=== PATIENT | male | born 1960 | race Caucasian/White ===

== ENCOUNTER 2017-06-02 15:37 | Inpatient (IN) | payer MEDICAID, OTHER, SELFPAY ==
[~2017-06-02] VITALS: Ht 182.9 cm; Wt 91.0 kg
[2017-06-02] MEDS ORDERED: ASPIRIN 81 MG TABLET CHEW PO ONE (16:00)
[2017-06-02] MEDS ORDERED: ASPIRIN 81 MG TABLET CHEW ONE (16:30)
[2017-06-02 16:41] LABS: HEMATOCRIT 44.1 % (39.2-51.8); HEMOGLOBIN 14.8 g/dL (13.7-18.0); WHITE BLOOD COUNT 12.5 x10^3/uL (3.4-10)
[2017-06-02] MEDS ORDERED: METF500T4 PO (16:45)
[2017-06-02 16:49] LABS: BLOOD UREA NITROGEN 23 mg/dL (7-18)
[2017-06-02 16:53] LABS: IS PT STATUS REG ER OR PRE ER? YES
[2017-06-02 17:45] LABS: PATH.CAST-FLAG NOT PRESENT; SPERM-FLAG NOT PRESENT; SRC-FLAG NOT PRESENT; XTAL-FLAG NOT PRESENT; YLC-FLAG NOT PRESENT
[2017-06-02] MEDS ORDERED: LISI40TA PO (17:50)
[2017-06-02] MEDS ORDERED: ASPI-515 PO (17:50)
[2017-06-02] MEDS ORDERED: AMLO10TA2 PO (17:50)
[2017-06-02] MEDS ORDERED: CHLO25TA PO (17:50)
[2017-06-02] MEDS ORDERED: GLIP5TAB10 PO (17:50)
[2017-06-02] MEDS ORDERED: INSU100V13 SQ (17:50)
[2017-06-02] MEDS ORDERED: HYDROmorphone 2 MG/ML, 1ML IVPush PRN (18:30)
[2017-06-02] MEDS ORDERED: NITROGLYCERIN 0.4 MG BOTTLE (25 TABS) SL PRN (18:30)
[2017-06-02] MEDS ORDERED: ASPIRIN 81 MG TABLET EC PO PRN (18:30)
[2017-06-02] MEDS ORDERED: hydrALAzine 20 MG/ML, 1ML IVPush PRN (18:30)
[2017-06-02] MEDS ORDERED: ACETAMINOPHEN 325 MG TABLET PO PRN (18:30)
[2017-06-02] MEDS ORDERED: ONDANSETRON 2MG/ML, 2ML IVPush PRN (18:30)
[2017-06-02 19:55] LABS: IS PT STATUS REG ER OR PRE ER? NO
[2017-06-02 20:13] VITALS: BP 134/81
[2017-06-02] MEDS: FAMOTIDINE 20 MG/2 ML IVPush SCH (21:38)
[2017-06-02] MEDS: ENOXAPARIN 40 MG/0.4 ML SQ SCH (21:38)
[2017-06-02] MEDS: FUROSEMIDE 20 MG/2 ML IVPush SCH (21:38)
[2017-06-02] MEDS: SODIUM CHLORIDE FLUSH 10ML SYR IVF SCH (21:39)
[2017-06-02] MEDS: INSULIN ASPART 100 UNITS/ML, PEN SQ-INSULIN SCH (21:52)
[2017-06-03 00:40] VITALS: BP 129/63
[2017-06-03 01:18] LABS: IS PT STATUS REG ER OR PRE ER? NO
[2017-06-03 06:54] VITALS: BP 136/76
[2017-06-03 06:56] LABS: HEMATOCRIT 42.7 % (39.2-51.8); HEMOGLOBIN 14.5 g/dL (13.7-18.0); WHITE BLOOD COUNT 8.9 x10^3/uL (3.4-10)
[2017-06-03 07:04] LABS: BLOOD UREA NITROGEN 26 mg/dL (7-18)
[2017-06-03 07:11] LABS: IS PT STATUS REG ER OR PRE ER? NO
[2017-06-03] MEDS: FAMOTIDINE 20 MG/2 ML IVPush SCH ×2 (08:28→20:39)
[2017-06-03] MEDS: ASPIRIN 325 MG TABLET EC PO SCH (08:29)
[2017-06-03] MEDS: INSULIN ASPART 100 UNITS/ML, PEN SQ-INSULIN SCH ×4 (08:29→20:39)
[2017-06-03] MEDS: FUROSEMIDE 20 MG/2 ML IVPush SCH ×2 (08:29→20:39)
[2017-06-03] MEDS: SPIRONOLACTONE 25 MG TABLET PO SCH (08:30)
[2017-06-03] MEDS: CHLORTHALIDONE 25 MG TABLET PO SCH (08:30)
[2017-06-03] MEDS: LISINOPRIL 20 MG TABLET PO SCH (08:30)
[2017-06-03] MEDS: SODIUM CHLORIDE FLUSH 10ML SYR IVF SCH ×2 (08:30→20:38)
[2017-06-03 13:16] VITALS: BP 147/82
[2017-06-03 19:28] VITALS: BP 130/73
[2017-06-03] MEDS: ENOXAPARIN 40 MG/0.4 ML SQ SCH (20:39)
[2017-06-04 02:31] VITALS: BP 127/76
[2017-06-04 05:54] LABS: HEMATOCRIT 47.2 % (39.2-51.8); HEMOGLOBIN 16.1 g/dL (13.7-18.0); WHITE BLOOD COUNT 14.8 x10^3/uL (3.4-10)
[2017-06-04 06:14] LABS: BLOOD UREA NITROGEN 32 mg/dL (7-18)
[2017-06-04] MEDS: ASPIRIN 325 MG TABLET EC PO SCH (06:27)
[2017-06-04 06:50] VITALS: BP 120/73
[2017-06-04] MEDS ORDERED: HEPARIN 5,000 UNITS/ML, 1ML SQ SCH (08:00)
[2017-06-04] MEDS: FUROSEMIDE 20 MG/2 ML IVPush SCH (08:58)
[2017-06-04] MEDS: SODIUM CHLORIDE FLUSH 10ML SYR IVF SCH (08:58)
[2017-06-04] MEDS: INSULIN ASPART 100 UNITS/ML, PEN SQ-INSULIN SCH ×2 (08:58→12:42)
[2017-06-04] MEDS: SPIRONOLACTONE 25 MG TABLET PO SCH (08:59)
[2017-06-04] MEDS: LISINOPRIL 20 MG TABLET PO SCH (08:59)
[2017-06-04] MEDS: FAMOTIDINE 20 MG/2 ML IVPush SCH (08:59)
[2017-06-04] MEDS: CHLORTHALIDONE 25 MG TABLET PO SCH (12:42)
[2017-06-05] MEDS ORDERED: FUROSEMIDE 40 MG TABLET PO SCH (09:00)
== END 2017-06-04 14:40 | disposition left against medical advice (07) | DRG 682 ==
LOC: ED 16:36 → EDIP 17:39 → 5SO 19:47
PROVIDERS: ADMIT Internal Medicine; ATTEND Internal Medicine
DX: N17.9 Acute kidney failure, unspecified (principal); I21.4 Non-ST elevation (NSTEMI) myocardial infarction; E11.41 Type 2 diabetes mellitus with diabetic mononeuropathy; I50.9 Heart failure, unspecified; E11.65 Type 2 diabetes mellitus with hyperglycemia; D72.829 Elevated white blood cell count, unspecified; I27.81 Cor pulmonale (chronic); I11.0 Hypertensive heart disease with heart failure; E78.5 Hyperlipidemia, unspecified; F17.200 Nicotine dependence, unspecified, uncomplicated; I07.1 Rheumatic tricuspid insufficiency; I34.0 Nonrheumatic mitral (valve) insufficiency; I35.8 Other nonrheumatic aortic valve disorders; Z79.82 Long term (current) use of aspirin; Z82.49 Family history of ischemic heart disease and other diseases of the circulatory system; Z83.3 Family history of diabetes mellitus
CPT/HCPCS: 36415; 71020; 80048; 81001; 82040; 82962; 83036; 83735; 83880; 84443; 84484; 85025; 93005; 93306; 99285; J1650; J1815; J1940; S0028

== ENCOUNTER → 2017-11-22 | Outpatient (CLI) | payer MEDICAID ==
[~2017-11-22] MED LIST: AMLO10TA2 PO; ASPI-515 PO; CHLO25TA PO; GLIP5TAB10 PO; INSU100V13 SQ; LISI40TA PO; METF500T4 PO
== END | disposition home or self-care (01) ==
LOC: CVU 07:29 → EDSTATUS 08:00
PROVIDERS: ATTEND Internal Medicine Cardiovascular Disease
DX: I34.0 Nonrheumatic mitral (valve) insufficiency (principal); I10 Essential (primary) hypertension; E11.9 Type 2 diabetes mellitus without complications; Q21.1 Atrial septal defect; Z87.891 Personal history of nicotine dependence
CPT/HCPCS: 93306

== ENCOUNTER 2019-08-12 23:28 | Emergency (ER) | payer BC, MEDICAID ==
[~2019-08-12] VITALS: Ht 182.9 cm; Wt 96.0 kg
[~2019-08-12 23:28] MED LIST changes: -AMLO10TA2 PO; +AMLO10TA8 PO; +METF500T17 PO; -METF500T4 PO
[2019-08-13] MEDS ORDERED: SODIUM CHLORIDE FLUSH 10ML SYR IVF ONE
[2019-08-13] MEDS ORDERED: ONDANSETRON 2MG/ML, 2ML IVPush ONE
[2019-08-13] MEDS ORDERED: MORPHINE SULFATE 4 MG/ML, 1ML IVPush PRN
[2019-08-13] MEDS ORDERED: ONDANSETRON 2MG/ML, 2ML ONE (00:08)
[2019-08-13] MEDS ORDERED: MORPHINE SULFATE 4 MG/ML, 1ML ONE (00:09)
[2019-08-13 00:23] LABS: ALANINE AMINOTRANSFERASE 13 U/L (12-78); ALBUMIN 2.1 g/dL (3.4-5.0); ANION GAP 8 mmol/L (5-15); CHLORIDE 106 mmol/L (98-107); CREATININE 1.92 mg/dL (0.7-1.3)
[2019-08-13 00:24] LABS: BASOPHILS # (AUTO) 0.06 x10^3/uL (0-0.1); BASOPHILS % (AUTO) 0 % (0-1); EOSINOPHILS # (AUTO) 0.09 x10^3/uL (0-0.4); EOSINOPHILS % (AUTO) 1 % (1-7); LYMPHOCYTES # (AUTO) 1.78 x10^3/uL (1-3.4); LYMPHOCYTES % (AUTO) 10 % (22-44); MD NO; MEAN CORPUSCULAR HEMOGLOBIN 31.6 pg (27.5-34.5); MEAN CORPUSCULAR HGB CONC 34.3 g/dL (33.2-36.2); MEAN CORPUSCULAR VOLUME 92.1 fL (81-97); MEAN PLATELET VOLUME 7.8 fL (7.4-10.4); MONOCYTES # (AUTO) 1.08 x10^3/uL (0.2-0.8); MONOCYTES % (AUTO) 6 % (2-9); NEUTROPHILS # (AUTO) 14.67 x10^3/uL (1.8-6.8); NEUTROPHILS % (AUTO) 83 % (42-75); PLATELET COUNT 293 x10^3/uL (130-400); RED BLOOD COUNT 4.71 x10^6/uL (4.38-5.82); RED CELL DISTRIBUTION WIDTH 13.1 % (9.4-14.8)
[2019-08-13 00:26] LABS: ALKALINE PHOSPHATASE 133 U/L (45-117); BILIRUBIN,TOTAL 0.3 mg/dL (0.2-1.0); TOTAL PROTEIN 6.4 g/dL (6.4-8.2)
[2019-08-13] MEDS ORDERED: CEFAZOLIN PMX 1GM/50ML 50 ML ONE (00:55)
[2019-08-13] MEDS ORDERED: VANCOMYCIN PER PHARMACY MC ONE (01:00)
[2019-08-13] MEDS ORDERED: SODIUM CHLORIDE 0.9% 1,000ML IVBOLUS ONE (01:00)
[2019-08-13] MEDS ORDERED: CEFAZOLIN PMX 1GM/50ML 50 ML IV ONE (01:00)
[2019-08-13 01:21] VITALS: BP 150/94
[2019-08-13] MEDS ORDERED: VANCOMYCIN 1,900 MG in SODIUM CHLORIDE 0.9% 250 ML IV ONE (01:30)
--- NOTE | 2019-08-13 01:30 | NUR ---
x2 SETS OF BLOOD CULTURES DRAWN PRIOR TO ABX ADMIN.
--- NOTE | 2019-08-13 01:33 | NUR ---
PT RESTING ON GURNEY WITH EYES CLOSED, MEDICATED PER SEP. DENIES FURTHER NEEDS AT THIS TIME.
--- NOTE | 2019-08-13 01:50 | NUR ---
DR UGALDE TALKED WITH PT RE ADMITTING PT TO HOSPITAL, PT STATED THAT HE WOULD NOT LIKE TO BE ADMITTED, AND WANTED TO BE DISCHARGED AT THIS TIME PT IN NAD AT THIS TIME
--- NOTE | 2019-08-13 02:25 | NUR ---
PT REFUSED VANCOMYCIN, MED RETURNED TO PHARMACY.
== END 2019-08-13 02:58 | disposition home or self-care (01) ==
LOC: ED 08-13 01:14
DX: L03.221 Cellulitis of neck (principal); E11.65 Type 2 diabetes mellitus with hyperglycemia; I50.9 Heart failure, unspecified; I25.2 Old myocardial infarction; F17.200 Nicotine dependence, unspecified, uncomplicated
CPT/HCPCS: 36415; 70490; 80053; 83605; 84145; 85025; 87040; 93005; 96365; 96375; 99284; J0690; J2270; J2405; J7030

== ENCOUNTER 2019-08-14 23:52 | Inpatient (IN) | payer BC ==
[~2019-08-14] VITALS: Ht 182.9 cm; Wt 97.5 kg
[2019-08-15] MEDS ORDERED: HYDROmorphone 1 MG/ML, 1ML INJ ONE (00:14)
[2019-08-15] MEDS ORDERED: LIDOCAINE-MPF 2% ,5ML ONE (00:14)
[2019-08-15] MEDS ORDERED: ONDANSETRON 2MG/ML, 2ML ONE (00:14)
[2019-08-15] MEDS ORDERED: CLINDAMYCIN PMX 600MG/50ML 50 ML ONE (00:14)
[2019-08-15] MEDS ORDERED: SODIUM CHLORIDE 0.9% 1,000ML IVBOLUS ONE (00:30)
[2019-08-15] MEDS ORDERED: LIDOCAINE 2%, 20ML SQ ONE (00:30)
[2019-08-15] MEDS ORDERED: CLINDAMYCIN PMX 600MG/50ML 50 ML IVPB ONE (00:30)
[2019-08-15] MEDS ORDERED: ONDANSETRON 2MG/ML, 2ML IVPush ONE (00:30)
[2019-08-15] MEDS ORDERED: SODIUM CHLORIDE FLUSH 10ML SYR IVF ONE (00:30)
[2019-08-15] MEDS ORDERED: HYDROmorphone 1 MG/ML, 1ML INJ IVPush PRN (00:30)
[2019-08-15 01:15] LABS: BASOPHILS # (AUTO) 0.04 x10^3/uL (0-0.1); BASOPHILS % (AUTO) 0 % (0-1); EOSINOPHILS # (AUTO) 0.23 x10^3/uL (0-0.4); EOSINOPHILS % (AUTO) 2 % (1-7); LYMPHOCYTES # (AUTO) 1.51 x10^3/uL (1-3.4); LYMPHOCYTES % (AUTO) 10 % (22-44); MD NO; MEAN CORPUSCULAR HEMOGLOBIN 31.7 pg (27.5-34.5); MEAN CORPUSCULAR HGB CONC 34.7 g/dL (33.2-36.2); MEAN CORPUSCULAR VOLUME 91.5 fL (81-97); MEAN PLATELET VOLUME 7.8 fL (7.4-10.4); MONOCYTES # (AUTO) 0.98 x10^3/uL (0.2-0.8); MONOCYTES % (AUTO) 6 % (2-9); NEUTROPHILS # (AUTO) 13.19 x10^3/uL (1.8-6.8); NEUTROPHILS % (AUTO) 83 % (42-75); PLATELET COUNT 298 x10^3/uL (130-400); RED BLOOD COUNT 4.39 x10^6/uL (4.38-5.82)
[2019-08-15 01:31] LABS: ALANINE AMINOTRANSFERASE 10 U/L (12-78); ALBUMIN 1.9 g/dL (3.4-5.0); ANION GAP 9 mmol/L (5-15); CALCIUM 7.9 mg/dL (8.5-10.1); CHLORIDE 103 mmol/L (98-107); CREATININE 2.06 mg/dL (0.7-1.3)
[2019-08-15 01:33] LABS: ALKALINE PHOSPHATASE 116 U/L (45-117); BILIRUBIN,TOTAL 0.3 mg/dL (0.2-1.0); TOTAL PROTEIN 6.1 g/dL (6.4-8.2)
[2019-08-15] MEDS ORDERED: ASPI-650 PO (02:12)
[2019-08-15] MEDS ORDERED: INSU100I34 SQ (02:13)
[2019-08-15] MEDS ORDERED: POTA20TA91 PO (02:15)
[2019-08-15] MEDS ORDERED: METO-282 PO (02:16)
[2019-08-15] MEDS ORDERED: NORT25CA2 PO (02:17)
[2019-08-15] MEDS ORDERED: ATOR10TA9 PO (02:18)
[2019-08-15] MEDS ORDERED: LISI-167 PO (02:19)
[2019-08-15] MEDS ORDERED: FURO40TA6 PO (02:19)
[2019-08-15] MEDS ORDERED: morphine SULFATE 10 MG/ML, 1ML IVPush PRN (02:30)
[2019-08-15] MEDS ORDERED: DOCUSATE 100 MG CAPSULE PO PRN (02:30)
[2019-08-15] MEDS ORDERED: BISACODYL 10 MG SUPP PR PRN (02:30)
[2019-08-15] MEDS ORDERED: PROMETHAZINE 25 MG/ML, 1ML IM PRN (02:30)
[2019-08-15] MEDS ORDERED: hydrALAzine 20 MG/ML, 1ML IVPush PRN (02:30)
[2019-08-15] MEDS ORDERED: ONDANSETRON ODT 4 MG PO PRN (02:30)
[2019-08-15] MEDS: NICOTINE 7 MG/24 HR PATCH.TD24 TD SCH (02:30)
[2019-08-15] MEDS ORDERED: ACETAMINOPHEN 325 MG TABLET PO PRN (02:30)
[2019-08-15] MEDS ORDERED: ONDANSETRON 2MG/ML, 2ML IVPush PRN (02:30)
[2019-08-15] MEDS ORDERED: POLYETHYLENE GLYCOL 17 GM PACKET PO PRN (02:30)
[2019-08-15 02:54] LABS: FREE T4 (FREE THYROXINE) 1.21 ng/dL (0.76-1.46)
[2019-08-15] MEDS: HEPARIN 5,000 UNITS/ML, 1ML SQ SCH ×4 (03:22→18:25)
[2019-08-15] MEDS: PIPERACILLIN/TAZO/PMX 2.25GM 50 ML IV SCH ×4 (03:23→23:02)
[2019-08-15] MEDS: INSULIN GLARGINE 100 UNITS/ML, PEN SQ-INSULIN SCH ×2 (03:24→20:55)
[2019-08-15] MEDS: INSULIN LISPRO 100 UNITS/ML, PEN SQ-INSULIN SCH ×5 (03:25→20:55)
[2019-08-15 03:52] VITALS: BP 173/93
[2019-08-15 04:27] VITALS: BP 126/77
[2019-08-15 08:00] VITALS: BP 144/87
[2019-08-15] MEDS: CHLORTHALIDONE 25 MG TABLET PO SCH (08:53)
[2019-08-15] MEDS: METOPROLOL SUCCINATE 25 MG TAB.ER.24H PO SCH (08:53)
[2019-08-15] MEDS: ASPIRIN 325 MG TABLET EC PO SCH (08:53)
[2019-08-15 15:55] VITALS: BP 161/91
[2019-08-15] MEDS: OXYcodone IR 5MG TABLET PO PRN (18:25)
[2019-08-15 19:07] VITALS: BP 121/72
[2019-08-15] MEDS: ATORVASTATIN 10 MG TABLET PO SCH (20:49)
[2019-08-16 00:02] VITALS: BP 168/99
[2019-08-16] MEDS: NICOTINE 7 MG/24 HR PATCH.TD24 TD SCH (02:30)
[2019-08-16] MEDS ORDERED: PHARMACOKINETIC CONSULTATION MC ONE (03:00)
[2019-08-16] MEDS ORDERED: PHARMACOKINETIC MONITORING MC PRN (03:00)
[2019-08-16] MEDS ORDERED: VANCOMYCIN 1,900 MG in SODIUM CHLORIDE 0.9% 250 ML IV SCH (03:00)
[2019-08-16] MEDS ORDERED: VANCOMYCIN PER PHARMACY MC PRN (03:00)
[2019-08-16] MEDS: HEPARIN 5,000 UNITS/ML, 1ML SQ SCH ×3 (04:55→20:52)
[2019-08-16] MEDS: PIPERACILLIN/TAZO/PMX 2.25GM 50 ML IV SCH ×4 (04:55→23:26)
[2019-08-16 05:44] LABS: BASOPHILS # (AUTO) 0.07 x10^3/uL (0-0.1); BASOPHILS % (AUTO) 1 % (0-1); EOSINOPHILS # (AUTO) 0.44 x10^3/uL (0-0.4); EOSINOPHILS % (AUTO) 4 % (1-7); LYMPHOCYTES # (AUTO) 2.46 x10^3/uL (1-3.4); LYMPHOCYTES % (AUTO) 20 % (22-44); MD NO; MEAN CORPUSCULAR VOLUME 91.2 fL (81-97); MEAN PLATELET VOLUME 7.9 fL (7.4-10.4); MONOCYTES # (AUTO) 0.96 x10^3/uL (0.2-0.8); MONOCYTES % (AUTO) 8 % (2-9); NEUTROPHILS # (AUTO) 8.19 x10^3/uL (1.8-6.8); NEUTROPHILS % (AUTO) 68 % (42-75); PLATELET COUNT 294 x10^3/uL (130-400); RED BLOOD COUNT 4.37 x10^6/uL (4.38-5.82); RED CELL DISTRIBUTION WIDTH 12.7 % (9.4-14.8)
[2019-08-16 05:52] LABS: ALBUMIN 1.8 g/dL (3.4-5.0); ANION GAP 6 mmol/L (5-15); CALCIUM 9.1 mg/dL (8.5-10.1); CHLORIDE 107 mmol/L (98-107)
[2019-08-16 05:57] LABS: ALANINE AMINOTRANSFERASE 15 U/L (12-78); ALKALINE PHOSPHATASE 95 U/L (45-117); BILIRUBIN,TOTAL 0.5 mg/dL (0.2-1.0); CHOL/HDL RATIO 5.5; CHOLESTEROL, TOTAL 171 mg/dL (140-239); CREATININE 1.88 mg/dL (0.7-1.3); HDL CHOL % 18 % (26-37); HDL CHOLESTEROL (DIRECT) 31 mg/dL (40-60); LDL CHOLESTEROL,CALCULATED 101 mg/dL (54-169); LDL/HDL RATIO 3.3 (0.5-3.0); TRIGLYCERIDES 195 mg/dL (50-200); VLDL CHOLESTEROL 39 mg/dL (0-25)
[2019-08-16 07:46] VITALS: BP 147/75
[2019-08-16] MEDS: ASPIRIN 325 MG TABLET EC PO SCH (08:26)
[2019-08-16] MEDS: INSULIN LISPRO 100 UNITS/ML, PEN SQ-INSULIN SCH ×4 (08:26→20:54)
[2019-08-16] MEDS: CHLORTHALIDONE 25 MG TABLET PO SCH (08:26)
[2019-08-16] MEDS: METOPROLOL SUCCINATE 25 MG TAB.ER.24H PO SCH (08:26)
[2019-08-16 12:30] VITALS: BP 147/87
[2019-08-16] MEDS: OXYcodone IR 5MG TABLET PO PRN (17:50)
[2019-08-16 19:13] VITALS: BP 157/90
[2019-08-16] MEDS: ATORVASTATIN 10 MG TABLET PO SCH (20:53)
[2019-08-16] MEDS: INSULIN GLARGINE 100 UNITS/ML, PEN SQ-INSULIN SCH (20:53)
[2019-08-17] MEDS: NICOTINE 7 MG/24 HR PATCH.TD24 TD SCH (02:48)
[2019-08-17 03:32] VITALS: BP 156/90
[2019-08-17] MEDS: PIPERACILLIN/TAZO/PMX 2.25GM 50 ML IV SCH ×2 (05:25→11:38)
[2019-08-17] MEDS: HEPARIN 5,000 UNITS/ML, 1ML SQ SCH ×2 (05:26→13:00)
[2019-08-17 05:28] LABS: BASOPHILS # (AUTO) 0.06 x10^3/uL (0-0.1); BASOPHILS % (AUTO) 1 % (0-1); EOSINOPHILS # (AUTO) 0.41 x10^3/uL (0-0.4); EOSINOPHILS % (AUTO) 3 % (1-7); LYMPHOCYTES % (AUTO) 17 % (22-44); MD NO; MEAN CORPUSCULAR HEMOGLOBIN 31.6 pg (27.5-34.5); MEAN CORPUSCULAR HGB CONC 34.2 g/dL (33.2-36.2); MEAN CORPUSCULAR VOLUME 92.6 fL (81-97); MEAN PLATELET VOLUME 7.5 fL (7.4-10.4); MONOCYTES # (AUTO) 0.88 x10^3/uL (0.2-0.8); MONOCYTES % (AUTO) 7 % (2-9); NEUTROPHILS # (AUTO) 8.48 x10^3/uL (1.8-6.8); NEUTROPHILS % (AUTO) 72 % (42-75); PLATELET COUNT 334 x10^3/uL (130-400); RED BLOOD COUNT 4.53 x10^6/uL (4.38-5.82); RED CELL DISTRIBUTION WIDTH 12.9 % (9.4-14.8)
[2019-08-17 05:33] LABS: CHLORIDE 108 mmol/L (98-107)
[2019-08-17 05:49] LABS: ANION GAP 8 mmol/L (5-15); CALCIUM 8.9 mg/dL (8.5-10.1); CREATININE 2.06 mg/dL (0.7-1.3); VANCOMYCIN,RANDOM 10.9 mcg/mL
[2019-08-17 06:51] VITALS: BP 149/84
[2019-08-17] MEDS: INSULIN LISPRO 100 UNITS/ML, PEN SQ-INSULIN SCH ×2 (07:34→11:39)
[2019-08-17] MEDS: METOPROLOL SUCCINATE 25 MG TAB.ER.24H PO SCH (07:34)
[2019-08-17] MEDS: CHLORTHALIDONE 25 MG TABLET PO SCH (07:34)
[2019-08-17] MEDS: ASPIRIN 325 MG TABLET EC PO SCH (07:34)
[2019-08-17] MEDS: OXYcodone IR 5MG TABLET PO PRN (11:41)
[2019-08-17] MEDS ORDERED: VANCOMYCIN 1,900 MG in SODIUM CHLORIDE 0.9% 250 ML IV SCH (12:00)
[2019-08-17] MEDS ORDERED: INSULIN GLARGINE 100 UNITS/ML, PEN SQ-INSULIN SCH (21:00)
== END 2019-08-17 14:42 | disposition left against medical advice (07) | DRG 579 ==
LOC: ED 08-15 00:51 → EDIP 08-15 01:47 → 3N 08-15 02:10
PROVIDERS: ADMIT Internal Medicine; ATTEND Internal Medicine
PROC: 0J950ZZ Drainage of Left Neck Subcutaneous Tissue and Fascia, Open Approach (ICD-10-PCS; principal; 2019-08-15)
DX: L03.221 Cellulitis of neck (principal); N17.0 Acute kidney failure with tubular necrosis; E87.2 Acidosis; I13.0 Hypertensive heart and chronic kidney disease with heart failure and stage 1 through stage 4 chronic kidney disease, or unspecified chronic kidney disease; E11.22 Type 2 diabetes mellitus with diabetic chronic kidney disease; L02.11 Cutaneous abscess of neck; E78.5 Hyperlipidemia, unspecified; E11.65 Type 2 diabetes mellitus with hyperglycemia; E88.09 Other disorders of plasma-protein metabolism, not elsewhere classified; F17.210 Nicotine dependence, cigarettes, uncomplicated; I25.2 Old myocardial infarction; I34.0 Nonrheumatic mitral (valve) insufficiency; I50.9 Heart failure, unspecified; N18.3 Chronic kidney disease, stage 3 (moderate); M54.2 Cervicalgia
CPT/HCPCS: 10060; 36415; 84145; 96374; 99285; J3490; 80048; 80053; 80061; 80202; 82962; 83036; 83605; 83735; 84439; 84443; 85025; 87040; 87070; 87077; 87147; 87186; 87205; G0378; J1170; J1644; J2405; J2543; J3370; J1815; J2270; J7030; J7050